=== PATIENT | female | born 1955 ===

== ENCOUNTER 2020-05-12 06:06 | Inpatient (IN) | payer MEDICARE, OTHER ==
[2020-05-12 13:02] LABS: Basophils # (Auto) 0.1 K/mm3 (0.0-0.1); Basophils % (Auto) 0.6 % (0.0-1.8); Hematocrit 37.7 % (30.3-42.9); Hemoglobin 12.5 gm/dl (10.1-14.3); Lymphocytes # (Auto) 2.2 K/mm3 (1.2-5.4); Lymphocytes % (Auto) 17.9 % (13.4-35.0); Mean Corpuscular HGB Conc 33 % (30-34); Mean Corpuscular Volume 93 fl (79-97); Monocytes % (Auto) 8.4 % (0.0-7.3); Platelet Count 316 K/mm3 (140-440); Red Blood Count 4.07 M/mm3 (3.65-5.03); Red Cell Distribution Width 14.8 % (13.2-15.2)
[2020-05-12 13:22] LABS: Alanine Aminotransferase 63 units/L (7-56); Albumin 4.3 g/dL (3.9-5); Blood Urea Nitrogen 7 mg/dL (7-17); Calcium 8.8 mg/dL (8.4-10.2); Hemolysis Index 19; LDL Cholesterol,Direct 53 mg/dL (50-130)
[2020-05-12 13:24] LABS: BUN/Creatinine Ratio 14
[2020-05-12 13:40] LABS: HDL Cholesterol 173 mg/dL (40-59)
[2020-05-12] MEDS ORDERED: LORazepam 0.5 MG TAB PO PRN (21:03)
--- NOTE | 2020-05-12 21:12 | Consultation ---
History of Present Illness - Reason for Consult Consult date: 05/12/20 Medical Management Requesting physician: SHARON FRIEDMAN - History of Present Illness 64 YO Female with Vascular Dementia with Behavioral Disturbance, Cerebral Atherosclerosis admitted to [facility] for Psychiatric stabilization. Consult placed by Dr. Friedman for medical management. Patient seen and evaluated in the recreation room. Patient resting comfortably. Patient denies fever, chills, chest pain, palpitation, productive cough, skin rash, recent ill contacts, or known exposure to COVID-19. Past History Past Medical History: other (See HPI) Past Surgical History: No surgical history, Other (Reviewed) Social history: . denies: smoking, alcohol abuse Family history: hypertension Medications and Allergies Allergies Allergy/AdvReac Type Severity Reaction Status Date / Time codeine Allergy Shortness Verified 05/12/20 10:47 of Breath Home Medications Medication Instructions Recorded Confirmed Last Taken Type Buspirone HCl [busPIRone] 15 mg PO BID 05/12/20 05/12/20 Unknown History Butalb/Acetaminophen/Caffeine 1 each PO BID PRN 05/12/20 05/12/20 Unknown Hist ory [Ekfjir-Zynbqqfb-Cyid 50-325-40] Carbidopa/Levodopa 25-100 [Sinemet] 1 each PO TID 05/12/20 05/12/20 Unknown History Ezetimibe [Zetia] 10 mg PO DAILY 05/12/20 05/12/20 Unknown History Gabapentin 800 mg PO TID 05/12/20 05/12/20 Unknown History Gabapentin [Neurontin] 800 mg PO TID 05/12/20 05/12/20 Unknown History LORazepam [Lorazepam] 0.5 mg PO DAILY PRN 05/12/20 05/12/20 Unknown History Topiramate [Topamax] 25 mg PO BID 05/12/20 05/12/20 Unknown History Venlafaxine HCl [Venlafaxine HCl 150 mg PO DAILY 05/12/20 05/12/20 Unknown History ER] amLODIPine 10 mg PO DAILY 05/12/20 05/12/20 Unknown History donepeziL [Aricept] 10 mg PO HS 05/12/20 05/12/20 Unknown History traZODone [Desyrel] 100 mg PO HS MDD 300mg 05/12/20 05/12/20 Unknown History Active Meds: Active Medications Amlodipine Besylate (Amlodipine 10 Mg Tab) 10 mg PO DAILY [facility] Carbidopa/Levodopa (Carbidopa/Levodopa 25-100 Mg Tab) 1 each PO TID [facility] Donepezil HCl (Donepezil 10 Mg Tab) 10 mg PO HS [facility] Ezetimibe (Ezetimibe 10 Mg Tab) 10 mg PO DAILY [facility] Lorazepam (Lorazepam 0.5 Mg Tab) 0.5 mg PO DAILY PRN PRN Reason: Agitation Miscellaneous Medication (Buspirone Hcl [Buspirone]) 15 mg PO BID [facility] Miscellaneous Medication (Butalb/Acetaminophen/Caffeine [Tqqlvg-Utlrkzso-Gxka 50-325-40]) 1 each PO BID PRN PRN Reason: Headache Miscellaneous Medication (Gabapentin) 800 mg PO TID [facility] Miscellaneous Medication (Gabapentin [Neurontin]) 800 mg PO TID [facility] Miscellaneous Medication (Venlafaxine Hcl [Venlafaxine Er]) 150 mg PO DAILY [facility] Topiramate (Topiramate Tab 25 Mg Tab) 25 mg PO BID [facility] Trazodone HCl (Trazodone 100 Mg Tab) 100 mg PO HS [facility] Review of Systems Constitutional: no weight loss, no weight gain, no fever Breasts: no change in shape, no swelling, no mass Cardiovascular: no chest pain, no orthopnea, no rapid/irregular heart beat, no edema, no syncope Respiratory: no cough, no shortness of breath Gastrointestinal: no abdominal pain, no vomiting Genitourinary Female: no pelvic pain, no flank pain, no dysuria, no urinary frequency, no urgency Rectal: no pain, no incontinence, no bleeding Musculoskeletal: no neck stiffness, no neck pain Integumentary: no pruritis, no redness, no sores Neurological: no transient paralysis, no weakness, no parathesias, no tingling Psychiatric: anxiety, suicidal ideation, depression, hopelessness, mood swings, no hallucinations Endocrine: no cold intolerance, no polyphagia, no polyuria, no excessive sweating Hematologic/Lymphatic: no easy bruising Allergic/Immunologic: no urticaria, no allergic rhinitis, no wheezing Exam - Constitutional General appearance: Present: no acute distress, obese - EENT Eyes: Present: PERRL ENT: hearing intact, clear oral mucosa - Neck Neck: Present: supple, normal ROM - Respiratory Respiratory effort: normal Respiratory: bilateral: CTA - Cardiovascular Heart Sounds: Present: S1 & S2. Absent: rub, click - Extremities Extremities: pulses symmetrical, No edema Peripheral Pulses: within normal limits - Abdominal General gastrointestinal: Present: soft, non-tender, non-distended, normal bowel sounds Female genitourinary: Present: normal - Integumentary Integumentary: Present: clear, warm, dry - Musculoskeletal Musculoskeletal: gait normal, strength equal bilaterally - Psychiatric Psychiatric: appropriate mood/affect, intact judgment & insight - Neurologic Neurologic: CNII-XII intact, moves all extremities Results - Labs CBC & Chem 7: 05/12/20 12:37 05/12/20 12:37 Labs: Abnormal lab results 05/12/20 05/12/20 05/12/20 Range/Units 12:37 12:37 19:13 WBC 12.2 H (4.5-11.0) K/mm3 [place] % (Auto) 8.4 H (0.0-7.3) % [place] # (Auto) 1.0 H (0.0-0.8) K/mm3 Seg Neutrophils % 73.1 H (40.0-70.0) % Seg Neutrophils # 8.9 H (1.8-7.7) K/mm3 Potassium 3.2 L (3.6-5.0) mmol/L Creatinine 0.5 L (0.6-1.2) mg/dL Glucose 121 H (65-100) mg/dL POC Glucose 115 H (70-105) mg/dL AST 86 H (5-40) units/L ALT 63 H (7-56) units/L Alkaline Phosphatase 223 H (35-129) units/L Cholesterol 225 H (50-199) mg/dL HDL Cholesterol 173 H (40-59) mg/dL Assessment and Plan - Patient Problems (1) Vascular dementia with behavioral disturbance Current Visit: Yes Status: Acute Plan to address problem: Verbal prompting, verbal redirection, benzodiazepine therapy as clinically indicated. (2) Cerebral atherosclerosis Current Visit: Yes Status: Acute Plan to address problem: Risk factor reduction, supportive care. (3) Obesity (BMI 30.0-34.9) Current Visit: Yes Status: Acute Plan to address problem: Balanced diet, increase physical activity discharge, supportive care.
[2020-05-12] MEDS: busPIRone 5 MG TAB PO SCH (21:48)
[2020-05-12] MEDS: DONEPEZIL 10 MG TAB PO SCH (21:49)
[2020-05-12] MEDS: traZODone 100 MG TAB PO SCH (21:50)
[2020-05-12] MEDS ORDERED: NON-FORMULARY EACH (Buspirone Hcl [Buspirone] 15 MG Tablet) PO SCH (22:00)
[2020-05-12] MEDS: TOPIRAMATE TAB 25 MG TAB PO SCH (22:23)
[2020-05-13] MEDS ORDERED: traMADol 50 MG TAB PO ONE (00:57)
[2020-05-13] MEDS ORDERED: LOPERAMIDE 2 MG CAP PO ONE (00:58)
[2020-05-13] MEDS ORDERED: GABAPENTIN 800 MG PO SCH (08:00)
[2020-05-13] MEDS ORDERED: NON-FORMULARY EACH (Gabapentin [Neurontin] 800 MG Tablet) PO SCH (08:00)
--- NOTE | 2020-05-13 09:11 | History and Physical Report ---
GP History & Physical - History of Present Illness Date of admission: 05/12/20 Date of Examination: 05/13/20 Reason for Admission: Danger to self, Severe anxiety/depression, Unable to care for self History of Present Illness: Lili Mena is a 64y/o female patient who was brought in for attempting to jump in front of a moving car, according to admission note. During my interview with the patient this morning, she is sitting on side of the bed. She appears anxious. Her affect is tense. She verbalized feeling hot. She verbalized feeing "severely depressed and fearful." She says "I also feel panicked. I suffer from it." When asked what was she fearful of and if she was fearful of self harm, the patient replied "I just don't know." She denies SI/HI, stating "I've never been that." When asking the patient about jumping in front of a moving car, she states "no, that's not true. I just have severe panic attacks." The patient denies hallucinations of any kind. She says she has a history of "anxiety and depression." The patient denies ever being diagnosed with schizophrenia. She also denies any illicit drug use or nicotine. She says she drinks about 4 to 6 beers a day. She says her last drink was about two days ago. The patient denies any withdrawal symptoms at present, but states she does have them if she doesn't drink. PAST PSYCHIATRIC HISTORY Diagnoses: Depression, anxiety, panic disorder Suicide attempts or Self-harm behavior: Denies Prior psychiatric hospitalizations: Yes Substance Abuse history: Denies Previous psychiatric medications tried: Outpatient treatment: Yes PAST MEDICAL HISTORY: None reported Family Psychiatric History: None reported or documented SOCIAL HISTORY Marital Status: Living Arrangements: with family Employment Status: Retured Access to guns/weapons: None reported Education: [employer] History of Abuse: None reported Legal History: denies REVIEW OF SYSTEMS Constitutional: Negative for weight loss ENT: Negative for stridor Respiratory: Negative for cough or hemoptysis All other systems reviewed and are negative MENTAL STATUS EXAMINATION General Appearance and Behavior: Age appropriate, good hygiene, wearing appropriate clothes, good eye contact Cooperation: Participating/engaged Psychomotor Behavior: Psychomotor normal Mood: "severely depressed" Affect and affective range: congruent with stated mood, tense Thought Process: Goal directed Thought Content: none Speech: Normal rate, volume and rhythm Suicidal Ideation: Denies at present Homicidal Ideation: Denies Hallucinations: Denies Delusions: None elicited Impulse Control: Impaired Insight and Judgment: Limited insight and judgment Memory: Limited Attention: impaired Orientation: Alert, oriented Assessment and Plan (1) Schizophrenia (2) Alcohol Use Disorder (3) Major Depressive Disorder (4) Panic Disorder Treatment Plan Patient admitted for inpatient psychiatric evaluation, medication adjustment and close monitoring The patient's behavior, mood, sleep and appetite will be closely monitored. Patient enrolled in individual and group therapeutic sessions and encouraged to attend. Patient provided with a safe and structured environment. Patient's physical health needs will be addressed by the Hospitalist. Hospitalist Consulted Labs including CBC, CMP, Lipid profile and Hemoglobin A1C levels ordered for baseline reference Social Assessment will be completed and the Gaming Department Head will work with patient and family to ensure a suitable and safe disposition Medication adjustment will be made as clinically indicated Initiate CIWA Start Trazodone 50mg po qhs Start melatonin 5mg po qhs prn insomnia Start Depakote DR 125mg po BID Start Vistaril 25mg po BID Restarted home medications Usual Wellness Sikhism/Preservation: - Start Trazodone 50 mg po QHS & 50 mg po QHS PRN between 10 PM & 2 AM for insomnia - Start Melatonin 5 mg po QHS to promote circadian rhythm - Start Newman-3 for brain health, reduce impulsivity, and as adjunctive treatment for mood disorder, continue upon discharge given overall benefits. - Start B1 prophylaxis with 200 mg po for 5 days The patient agreed on the treatment plan, understood the risk, benefit, alternative treatment, potential consequence of no treatment, and gave informed consent. Initial Certification I certify that the inpatient psychiatric services are required for treatment that could reasonably be expected to improve the patient's condition for depression and suicidal thoughts Estimated days: 7 Post hospital care: Outpatient Case staffed with Dr. Felix. Legal Status: Voluntary Reaction to Hospitalization: Accepting Medications and Allergies Allergies Allergy/AdvReac Type Severity Reaction Status Date / Time codeine Allergy Shortness Verified 05/12/20 10:47 of Breath Home Medications Medication Instructions Recorded Confirmed Last Taken Type Buspirone HCl [busPIRone] 15 mg PO BID 05/12/20 05/12/20 Unknown History Butalb/Acetaminophen/Caffeine 1 each PO BID PRN 05/12/20 05/12/20 Unknown History [Vuvfec-Gjnriopj-Fcqr 50-325-40] Carbidopa/Levodopa 25-100 [Sinemet] 1 each PO TID 05/12/20 05/12/20 Unknown History Ezetimibe [Zetia] 10 mg PO DAILY 05/12/20 05/12/20 Unknown History Gabapentin 800 mg PO TID 05/12/20 05/12/20 Unknown History Gabapentin [Neurontin] 800 mg PO TID 05/12/20 05/12/20 Unknown History LORazepam [Lorazepam] 0.5 mg PO DAILY PRN 05/12/20 05/12/20 Unknown History Topiramate [Topamax] 25 mg PO BID 05/12/20 05/12/20 Unknown History Venlafaxine HCl [Venlafaxine HCl 150 mg PO DAILY 05/12/20 05/12/20 Unknown History ER] amLODIPine 10 mg PO DAILY 05/12/20 05/12/20 Unknown History donepeziL [Aricept] 10 mg PO HS 05/12/20 05/12/20 Unknown History traZODone [Desyrel] 100 mg PO HS MDD 300mg 05/12/20 05/12/20 Unknown History Active Meds: Active Medications Acetaminophen/Butalbital/Caffeine (Butalb/Acetaminophen/Caffeine Tab) 1 tab PO BID PRN PRN Reason: Headache Amlodipine Besylate (Amlodipine 10 Mg Tab) 10 mg PO DAILY [facility] Buspirone HCl (Buspirone 5 Mg Tab) 15 mg PO BID [facility] Last Admin: 05/12/20 21:48 Dose: 15 mg Documented by: Carbidopa/Levodopa (Carbidopa/Levodopa 25-100 Mg Tab) 1 each PO TID [facility] Donepezil HCl (Donepezil 10 Mg Tab) 10 mg PO HS [facility] Last Admin: 05/12/20 21:49 Dose: 10 mg Documented by: Ezetimibe (Ezetimibe 10 Mg Tab) 10 mg PO DAILY [facility] Gabapentin (Gabapentin 400 Mg Cap) 800 mg PO TID [facility] Lorazepam (Lorazepam 0.5 Mg Tab) 0.5 mg PO DAILY PRN PRN Reason: Agitation Topiramate (Topiramate Tab 25 Mg Tab) 25 mg PO BID [facility] Last Admin: 05/12/20 22:23 Dose: 25 mg Documented by: Trazodone HCl (Trazodone 100 Mg Tab) 100 mg PO HS [facility] Last Admin: 05/12/20 21:50 Dose: 100 mg Documented by: Venlafaxine HCl (Venlafaxine Xr 75 Mg Cap) 150 mg PO DAILY [facility] Results - Results Labs/Vitals: Laboratory Last Values WBC 12.2 K/mm3 (4.5-11.0) H 05/12/20 12:37 RBC 4.07 M/mm3 (3.65-5.03) 05/12/20 12:37 Hgb 12.5 gm/dl (10.1-14.3) 05/12/20 12:37 Hct 37.7 % (30.3-42.9) 05/12/20 12:37 MCV 93 fl (79-97) 05/12/20 12:37 MCH 31 pg (28-32) 05/12/20 12:37 MCHC 33 % (30-34) 05/12/20 12:37 RDW 14.8 % (13.2-15.2) 05/12/20 12:37 Plt Count 316 K/mm3 (140-440) 05/12/20 12:37 Lymph % (Auto) 17.9 % (13.4-35.0) 05/12/20 12:37 [place] % (Auto) 8.4 % (0.0-7.3) H 05/12/20 12:37 Eos % (Auto) 0.0 % (0.0-4.3) 05/12/20 12:37 Baso % (Auto) 0.6 % (0.0-1.8) 05/12/20 12:37 Lymph # (Auto) 2.2 K/mm3 (1.2-5.4) 05/12/20 12:37 [place] # (Auto) 1.0 K/mm3 (0.0-0.8) H 05/12/20 12:37 Eos # (Auto) 0.0 K/mm3 (0.0-0.4) 05/12/20 12:37 Baso # (Auto) 0.1 K/mm3 (0.0-0.1) 05/12/20 12:37 Seg Neutrophils % 73.1 % (40.0-70.0) H 05/12/20 12:37 Seg Neutrophils # 8.9 K/mm3 (1.8-7.7) H 05/12/20 12:37 Sodium 138 mmol/L (137-145) 05/12/20 12:37 Potassium 3.2 mmol/L (3.6-5.0) L 05/12/20 12:37 Chloride 101.0 mmol/L (98-107) 05/12/20 12:37 Carbon Dioxide 25 mmol/L (22-30) 05/12/20 12:37 Anion Gap 15 mmol/L 05/12/20 12:37 BUN 7 mg/dL (7-17) 05/12/20 12:37 Creatinine 0.5 mg/dL (0.6-1.2) L 05/12/20 12:37 Estimated GFR > 60 ml/min 05/12/20 12:37 BUN/Creatinine Ratio 14 % 05/12/20 12:37 Glucose 121 mg/dL (65-100) H 05/12/20 12:37 POC Glucose 117 mg/dL (70-105) H 05/13/20 07:57 Hemoglobin A1c 5.2 % (4-6) 05/12/20 12:37 Calcium 8.8 mg/dL (8.4-10.2) 05/12/20 12:37 Total Bilirubin 0.70 mg/dL (0.1-1.2) 05/12/20 12:37 AST 86 units/L (5-40) H 05/12/20 12:37 ALT 63 units/L (7-56) H 05/12/20 12:37 Alkaline Phosphatase 223 units/L (35-129) H 05/12/20 12:37 Total Protein 7.4 g/dL (6.3-8.2) 05/12/20 12:37 Albumin 4.3 g/dL (3.9-5) 05/12/20 12:37 Albumin/Globulin Ratio 1.4 % 05/12/20 12:37 Triglycerides 114 mg/dL (2-149) 05/12/20 12:37 Cholesterol 225 mg/dL (50-199) H 05/12/20 12:37 LDL Cholesterol Direct 53 mg/dL (50-130) 05/12/20 12:37 HDL Cholesterol 173 mg/dL (40-59) H 05/12/20 12:37 Cholesterol/HDL Ratio 1.30 % 05/12/20 12:37 TSH 2.290 mlU/mL (0.270-4.200) 05/12/20 12:37 Last Vital Signs Temp 99.2 F 05/13/20 07:10 Pulse 85 05/12/20 22:00 Resp 17 05/12/20 22:00 BP 172/88 05/12/20 22:00 Pulse Ox 96 05/12/20 22:00 Physical Examination - Constitutional Vitals: Vital Signs Temp Pulse Resp BP Pulse Ox 99.2 F 85 17 172/88 96 05/13/20 07:10 05/12/20 22:00 05/12/20 22:00 05/12/20 22:00 05/12/20 22:00 Temperature -Last 24 Hours Temperature 99.2 F Temperature 98.6 F Temperature 98.6 F Mental Status Exam - Vital signs Last Vital Signs Temp 99.2 F 05/13/20 07:10 Pulse 85 05/12/20 22:00 Resp 17 05/12/20 22:00 BP 172/88 05/12/20 22:00 Pulse Ox 96 05/12/20 22:00 Physician Certification - Certification Statement Physician Certification Statement: This is an acknowledgement statement that LILI MENA is a 64 year old F who requires inpatient psychiatric admission for treatment which could reasonably be expected to improve the patient's condition for Estimated period of time patient will need to remain in the hospital: [ ] Plan for post-hospital care: [ ]
[2020-05-13] MEDS ORDERED: chlordiazePOXIDE 25 MG CAP PO PRN ×2 (09:21)
[2020-05-13] MEDS: CARBIDOPA/LEVODOPA 25-100 MG TAB PO SCH ×3 (09:58→20:29)
[2020-05-13] MEDS: busPIRone 5 MG TAB PO SCH ×2 (09:58→21:00)
[2020-05-13] MEDS: GABAPENTIN 400 MG CAP PO SCH ×3 (09:58→20:29)
[2020-05-13] MEDS: amLODIPine 10 MG TAB PO SCH (09:58)
[2020-05-13] MEDS: TOPIRAMATE TAB 25 MG TAB PO SCH ×2 (09:59→21:01)
[2020-05-13] MEDS: EZETIMIBE 10 MG TAB PO SCH (09:59)
[2020-05-13] MEDS: VENLAFAXINE XR 75 MG CAP PO SCH (09:59)
[2020-05-13] MEDS ORDERED: VENLAFAXINE HCL 225 MG PO SCH (10:00)
[2020-05-13] MEDS: hydrOXYzine PAMOATE 25 MG CAP PO SCH ×2 (10:04→21:01)
[2020-05-13] MEDS: DIVALPROEX DR 125 MG TAB PO SCH ×2 (10:04→21:00)
--- NOTE | 2020-05-13 11:57 | Event Note ---
Date: 05/13/20 Spoke with Randy Howell concerning this patient; as it was relayed to me to call by SW. Mrs. Howell states that the Title Specialist has spoken with "[facility] and they have sent email over to her for the patient concerning the patient's evaluation."
[2020-05-13] MEDS: DONEPEZIL 10 MG TAB PO SCH (21:01)
[2020-05-13] MEDS: traZODone 100 MG TAB PO SCH (21:01)
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
[2020-05-14] MEDS: GABAPENTIN 400 MG CAP PO SCH ×3 (08:50→21:45)
[2020-05-14] MEDS: CARBIDOPA/LEVODOPA 25-100 MG TAB PO SCH ×3 (08:52→21:45)
[2020-05-14] MEDS: busPIRone 5 MG TAB PO SCH ×2 (09:51→21:45)
[2020-05-14] MEDS: VENLAFAXINE XR 75 MG CAP PO SCH (09:51)
[2020-05-14] MEDS: DIVALPROEX DR 125 MG TAB PO SCH ×2 (09:52→21:44)
[2020-05-14] MEDS: amLODIPine 10 MG TAB PO SCH (09:52)
[2020-05-14] MEDS: EZETIMIBE 10 MG TAB PO SCH (09:52)
[2020-05-14] MEDS: TOPIRAMATE TAB 25 MG TAB PO SCH ×2 (09:53→21:46)
[2020-05-14] MEDS: hydrOXYzine PAMOATE 25 MG CAP PO SCH ×2 (09:53→21:45)
[2020-05-14] MEDS: traZODone 100 MG TAB PO SCH (21:45)
[2020-05-14] MEDS: DONEPEZIL 10 MG TAB PO SCH (21:46)
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
[2020-05-15] MEDS: GABAPENTIN 400 MG CAP PO SCH ×3 (11:52→20:49)
[2020-05-15] MEDS: TOPIRAMATE TAB 25 MG TAB PO SCH ×2 (11:52→21:50)
[2020-05-15] MEDS: CARBIDOPA/LEVODOPA 25-100 MG TAB PO SCH ×3 (11:52→20:50)
[2020-05-15] MEDS: busPIRone 5 MG TAB PO SCH ×2 (11:52→21:50)
[2020-05-15] MEDS: EZETIMIBE 10 MG TAB PO SCH (11:54)
[2020-05-15] MEDS: DIVALPROEX DR 125 MG TAB PO SCH ×2 (11:54→21:50)
[2020-05-15] MEDS: amLODIPine 10 MG TAB PO SCH (11:54)
[2020-05-15] MEDS: hydrOXYzine PAMOATE 25 MG CAP PO SCH ×2 (11:54→21:50)
[2020-05-15] MEDS: BUTALB/ACETAMINOPHEN/CAFFEINE TAB PO PRN (11:55)
[2020-05-15] MEDS: VENLAFAXINE XR 75 MG CAP PO SCH (15:36)
[2020-05-15] MEDS ORDERED: ACETAMINOPHEN 325 MG TAB PO PRN (19:23)
[2020-05-15] MEDS: traZODone 100 MG TAB PO SCH (21:50)
[2020-05-15] MEDS: DONEPEZIL 10 MG TAB PO SCH (21:50)
[2020-05-16] MEDS: CARBIDOPA/LEVODOPA 25-100 MG TAB PO SCH ×3 (08:31→21:42)
[2020-05-16] MEDS: GABAPENTIN 400 MG CAP PO SCH ×3 (08:32→21:42)
--- NOTE | 2020-05-16 09:20 | Progress Note ---
Subjective Date of service: 05/16/20 Principal diagnosis: Schizophrenia Subjective Comment: Psych Nurse:pt spent the evening in activity room interacting appropriately with staff, alert and orientedx3, anxious but cooperative, ativan 0.5mg po given prn for anxiety as requested by pt; pt is medication compliant, good appetite, denies si//hi, a/v/h, no distress noted, will continue to monitor for safety. Psych Progress Ms. Pearson is seen this a.m., patient reports doing good, enjoying activities, eating and drinking okay without any difficulty also reports sleeping well no nightmares. Patient reported compliance with her medications, denies having any known side effects at this time. Patient also asked about when she will be potentially discharging from patient were looking at Monday or Monday a.m. patient reports she is in agreement with that. Reason for continued inpatient treatment: No recent behavioral disturbances, pt reported to be better and more pleasant, will continue current meds and observe for mood stability. REVIEW OF SYSTEMS Constitutional: Negative for weight loss ENT: Negative for stridor Respiratory: Negative for cough or hemoptysis All other systems reviewed and are negative MENTAL STATUS EXAMINATION General Appearance and Behavior: Age appropriate, good hygiene, wearing appropriate clothes, good eye contact Cooperation: Participating/engaged Psychomotor Behavior: Psychomotor normal Mood: "uch better" Affect and affective range: congruent with stated mood Thought Process: logical Thought Content: within reality Speech: Normal rate, volume and rhythm Suicidal Ideation: Denies Homicidal Ideation: Denies Hallucinations: Denies Delusions: None elicited Impulse Control: Impaired Insight and Judgment: Good insight and judgment Memory: Limited Attention: unimpaired Orientation: Alert, oriented Assessment and Plan (1) Schizophrenia (2) Alcohol Use Disorder (3) Major Depressive Disorder (4) Panic Disorder Treatment Plan Patient admitted for inpatient psychiatric evaluation, medication adjustment and close monitoring The patient's behavior, mood, sleep and appetite will be closely monitored. Patient enrolled in individual and group therapeutic sessions and encouraged to attend. Patient provided with a safe and structured environment. Patient's physical health needs will be addressed by the Hospitalist. Hospitalist Consulted Labs including CBC, CMP, Lipid profile and Hemoglobin A1C levels ordered for baseline reference Social Assessment will be completed and the Gasket Former will work with patient and family to ensure a suitable and safe disposition Medication adjustment will be made as clinically indicated No changes made today Usual Wellness Synagogue/Preservation: - Start Trazodone 50 mg po QHS & 50 mg po QHS PRN between 10 PM & 2 AM for insomnia - Start Melatonin 5 mg po QHS to promote circadian rhythm - Start [place]-3 for brain health, reduce impulsivity, and as adjunctive treatment for mood disorder, continue upon discharge given overall benefits. - Start B1 prophylaxis with 200 mg po for 5 days The patient agreed on the treatment plan, understood the risk, benefit, alternative treatment, potential consequence of no treatment, and gave informed consent. Estimated days: 5 Post hospital care: Outpatient Case staffed with Dr. Felix. Medications and Allergies Allergies Allergy/AdvReac Type Severity Reaction Status Date / Time codeine Allergy Shortness Verified 05/12/20 10:47 of Breath Home Medications Medication Instructions Recorded Confirmed Last Taken Type Buspirone HCl [busPIRone] 15 mg PO BID 05/12/20 05/12/20 Unknown History Butalb/Acetaminophen/Caffeine 1 each PO BID PRN 05/12/20 05/12/20 Unknown History [Awblyr-Qgmtkchb-Scwq 50-325-40] Carbidopa/Levodopa 25-100 [Sinemet] 1 each PO TID 05/12/20 05/12/20 Unknown History Ezetimibe [Zetia] 10 mg PO DAILY 05/12/20 05/12/20 Unknown History Gabapentin 800 mg PO TID 05/12/20 05/12/20 Unknown History Gabapentin [Neurontin] 800 mg PO TID 05/12/20 05/12/20 Unknown History LORazepam [Lorazepam] 0.5 mg PO DAILY PRN 05/12/20 05/12/20 Unknown History Topiramate [Topamax] 25 mg PO BID 05/12/20 05/12/20 Unknown History Venlafaxine HCl [Venlafaxine HCl 150 mg PO DAILY 05/12/20 05/12/20 Unknown History ER] amLODIPine 10 mg PO DAILY 05/12/20 05/12/20 Unknown History donepeziL [Aricept] 10 mg PO HS 05/12/20 05/12/20 Unknown History traZODone [Desyrel] 100 mg PO HS MDD 300mg 05/12/20 05/12/20 Unknown History Active Meds: Active Medications Acetaminophen (Acetaminophen 325 Mg Tab) 650 mg PO Q6H PRN PRN Reason: Pain, Mild (1-3) Acetaminophen/Butalbital/Caffeine (Butalb/Acetaminophen/Caffeine Tab) 1 tab PO BID PRN PRN Reason: Headache Last Admin: 05/15/20 11:55 Dose: 1 tab Documented by: Amlodipine Besylate (Amlodipine 10 Mg Tab) 10 mg PO DAILY [facility] Last Admin: 05/15/20 11:54 Dose: 10 mg Documented by: Buspirone HCl (Buspirone 5 Mg Tab) 15 mg PO BID [facility] Last Admin: 05/15/20 21:50 Dose: 15 mg Documented by: Carbidopa/Levodopa (Carbidopa/Levodopa 25-100 Mg Tab) 1 each PO TID [facility] Last Admin: 05/16/20 08:31 Dose: 1 each Documented by: Chlordiazepoxide HCl (Chlordiazepoxide 25 Mg Cap) 50 mg PO Q1HR PRN PRN Reason: YOU-Ernie 8-15 Chlordiazepoxide HCl (Chlordiazepoxide 25 Mg Cap) 100 mg PO Q1HR PRN PRN Reason: YOU-Ernie 16-25 Divalproex Sodium (Divalproex Dr 125 Mg Tab) 125 mg PO BID [facility] Last Admin: 05/15/20 21:50 Dose: 125 mg Documented by: Donepezil HCl (Donepezil 10 Mg Tab) 10 mg PO [facility] Last Admin: 05/15/20 21:50 Dose: 10 mg Documented by: Ezetimibe (Ezetimibe 10 Mg Tab) 10 mg PO DAILY [facility] Last Admin: 05/15/20 11:54 Dose: 10 mg Documented by: Gabapentin (Gabapentin 400 Mg Cap) 800 mg PO TID [facility] Last Admin: 05/16/20 08:32 Dose: 800 mg Documented by: Hydroxyzine Pamoate (Hydroxyzine Pamoate 25 Mg Cap) 25 mg PO BID [facility] Last Admin: 05/15/20 21:50 Dose: 25 mg Documented by: Lorazepam (Lorazepam 0.5 Mg Tab) 0.5 mg PO DAILY PRN PRN Reason: Agitation Last Admin: 05/15/20 21:41 Dose: 0.5 mg Documented by: Topiramate (Topiramate Tab 25 Mg Tab) 25 mg PO BID [facility] Last Admin: 05/15/20 21:50 Dose: 25 mg Documented by: Trazodone HCl (Trazodone 100 Mg Tab) 100 mg PO HS [facility] Last Admin: 05/15/20 21:50 Dose: 100 mg Documented by: Venlafaxine HCl (Venlafaxine Xr 75 Mg Cap) 150 mg PO DAILY [facility] Last Admin: 05/15/20 15:36 Dose: 150 mg Documented by: Results - Results Labs/Vitals: Laboratory Last Values WBC 12.2 K/mm3 (4.5-11.0) H 05/12/20 12:37 RBC 4.07 M/mm3 (3.65-5.03) 05/12/20 12:37 Hgb 12.5 gm/dl (10.1-14.3) 05/12/20 12:37 Hct 37.7 % (30.3-42.9) 05/12/20 12:37 MCV 93 fl (79-97) 05/12/20 12:37 MCH 31 pg (28-32) 05/12/20 12:37 MCHC 33 % (30-34) 05/12/20 12:37 RDW 14.8 % (13.2-15.2) 05/12/20 12:37 Plt Count 316 K/mm3 (140-440) 05/12/20 12:37 Lymph % (Auto) 17.9 % (13.4-35.0) 05/12/20 12:37 [place] % (Auto) 8.4 % (0.0-7.3) H 05/12/20 12:37 Eos % (Auto) 0.0 % (0.0-4.3) 05/12/20 12:37 Baso % (Auto) 0.6 % (0.0-1.8) 05/12/20 12:37 Lymph # (Auto) 2.2 K/mm3 (1.2-5.4) 05/12/20 12:37 [place] # (Auto) 1.0 K/mm3 (0.0-0.8) H 05/12/20 12:37 Eos # (Auto) 0.0 K/mm3 (0.0-0.4) 05/12/20 12:37 Baso # (Auto) 0.1 K/mm3 (0.0-0.1) 05/12/20 12:37 Seg Neutrophils % 73.1 % (40.0-70.0) H 05/12/20 12:37 Seg Neutrophils # 8.9 K/mm3 (1.8-7.7) H 05/12/20 12:37 Sodium 138 mmol/L (137-145) 05/12/20 12:37 Potassium 3.2 mmol/L (3.6-5.0) L 05/12/20 12:37 Chloride 101.0 mmol/L (98-107) 05/12/20 12:37 Carbon Dioxide 25 mmol/L (22-30) 05/12/20 12:37 Anion Gap 15 mmol/L 05/12/20 12:37 BUN 7 mg/dL (7-17) 05/12/20 12:37 Creatinine 0.5 mg/dL (0.6-1.2) L 05/12/20 12:37 Estimated GFR > 60 ml/min 05/12/20 12:37 BUN/Creatinine Ratio 14 % 05/12/20 12:37 Glucose 121 mg/dL (65-100) H 05/12/20 12:37 POC Glucose 110 mg/dL (70-105) H 05/15/20 06:30 Hemoglobin A1c 5.2 % (4-6) 05/12/20 12:37 Calcium 8.8 mg/dL (8.4-10.2) 05/12/20 12:37 Total Bilirubin 0.70 mg/dL (0.1-1.2) 05/12/20 12:37 AST 86 units/L (5-40) H 05/12/20 12:37 ALT 63 units/L (7-56) H 05/12/20 12:37 Alkaline Phosphatase 223 units/L (35-129) H 05/12/20 12:37 Total Protein 7.4 g/dL (6.3-8.2) 05/12/20 12:37 Albumin 4.3 g/dL (3.9-5) 05/12/20 12:37 Albumin/Globulin Ratio 1.4 % 05/12/20 12:37 Triglycerides 114 mg/dL (2-149) 05/12/20 12:37 Cholesterol 225 mg/dL (50-199) H 05/12/20 12:37 LDL Cholesterol Direct 53 mg/dL (50-130) 05/12/20 12:37 HDL Cholesterol 173 mg/dL (40-59) H 05/12/20 12:37 Cholesterol/HDL Ratio 1.30 % 05/12/20 12:37 TSH 2.290 mlU/mL (0.270-4.200) 05/12/20 12:37 Coronavirus (PCR) Negative (Negative) 05/13/20 08:06 Last Vital Signs Temp 99.6 F 05/16/20 07:05 Pulse 79 05/16/20 07:05 Resp 15 05/16/20 07:05 BP 150/88 05/16/20 07:05 Pulse Ox 93 05/16/20 07:05
[2020-05-16] MEDS: EZETIMIBE 10 MG TAB PO SCH (09:50)
[2020-05-16] MEDS: TOPIRAMATE TAB 25 MG TAB PO SCH ×2 (09:51→21:42)
[2020-05-16] MEDS: amLODIPine 10 MG TAB PO SCH (09:51)
[2020-05-16] MEDS: busPIRone 5 MG TAB PO SCH ×2 (09:51→21:41)
[2020-05-16] MEDS: hydrOXYzine PAMOATE 25 MG CAP PO SCH ×2 (09:52→21:42)
[2020-05-16] MEDS: DIVALPROEX DR 125 MG TAB PO SCH ×2 (09:52→21:42)
[2020-05-16] MEDS: VENLAFAXINE XR 75 MG CAP PO SCH (09:52)
[2020-05-16] MEDS: DONEPEZIL 10 MG TAB PO SCH (21:42)
[2020-05-16] MEDS: traZODone 100 MG TAB PO SCH (21:43)
[2020-05-17] MEDS: GABAPENTIN 400 MG CAP PO SCH ×3 (08:16→19:39)
[2020-05-17] MEDS: CARBIDOPA/LEVODOPA 25-100 MG TAB PO SCH ×3 (08:16→19:39)
--- NOTE | 2020-05-17 09:23 | Progress Note ---
Subjective Date of service: 05/17/20 Principal diagnosis: Schizophrenia Subjective Comment: Psych Nurse:Last evening the patient talked to three of her peers. She and her peers presented as playing a "game" with the tech. When the tech would be assisting someone - this patient and her peers would request something of the tech. When unable to get a request satisfied quickly enough the patient would complain loudly then whisper to her peers. At one point the patient came to the nurses station upset and requesting to leave AMA [facility]. Patient was given the form to fill out but she did not return it. This mortgage underwriter listened to patient with various complaints and she stated she felt better. She stated she had called her and asked him to pick her up here tomorrow. Patient was encouraged to discuss this with the care provider in the morning. Patient denies si/hi/ah/vh. She is medication compliant. Will continue to monitor patient for safety. Psych Progress Patient seen this a.m. patient reports doing much better, she reports she has not spoken to her yet, has been medication compliant, patient reports sleeping well not not hearing voices, improved mood, appetite and no nightly disturbances. Patient reports seeing the hospitalist yesterday too about her previous medical complaints. She also states she is looking forward to getting discharge. Reason for continued inpatient treatment: No recent behavioral disturbances, pt reported to be better and more pleasant, will continue current meds and observe for mood stability. REVIEW OF SYSTEMS Constitutional: Negative for weight loss ENT: Negative for stridor Respiratory: Negative for cough or hemoptysis All other systems reviewed and are negative MENTAL STATUS EXAMINATION General Appearance and Behavior: Age appropriate, good hygiene, wearing appropriate clothes, good eye contact Cooperation: Participating/engaged Psychomotor Behavior: Psychomotor normal Mood: "uch better" Affect and affective range: congruent with stated mood Thought Process: logical Thought Content: within reality Speech: Normal rate, volume and rhythm Suicidal Ideation: Denies Homicidal Ideation: Denies Hallucinations: Denies Delusions: None elicited Impulse Control: Impaired Insight and Judgment: Good insight and judgment Memory: Limited Attention: unimpaired Orientation: Alert, oriented Assessment and Plan (1) Schizophrenia (2) Alcohol Use Disorder (3) Major Depressive Disorder (4) Panic Disorder Treatment Plan Patient admitted for inpatient psychiatric evaluation, medication adjustment and close monitoring The patient's behavior, mood, sleep and appetite will be closely monitored. Patient enrolled in individual and group therapeutic sessions and encouraged to attend. Patient provided with a safe and structured environment. Patient's physical health needs will be addressed by the Hospitalist. Hospitalist Consulted Labs including CBC, CMP, Lipid profile and Hemoglobin A1C levels ordered for baseline reference Social Assessment will be completed and the Dock Grader will work with patient and family to ensure a suitable and safe disposition Medication adjustment will be made as clinically indicated Deparkote increased to 250 mg BID Usual Wellness Spiritism/Preservation: - Start Trazodone 50 mg po QHS & 50 mg po QHS PRN between 10 PM & 2 AM for insomnia - Start Melatonin 5 mg po QHS to promote circadian rhythm - Start [place]-3 for brain health, reduce impulsivity, and as adjunctive treatment for mood disorder, continue upon discharge given overall benefits. - Start B1 prophylaxis with 200 mg po for 5 days The patient agreed on the treatment plan, understood the risk, benefit, alternative treatment, potential consequence of no treatment, and gave informed consent. Estimated days: 5 Post hospital care: Outpatient Case staffed with Dr. Felix. Medications and Allergies Allergies Allergy/AdvReac Type Severity Reaction Status Date / Time codeine Allergy Shortness Verified 05/12/20 10:47 of Breath Home Medications Medication Instructions Recorded Confirmed Last Taken Type Buspirone HCl [busPIRone] 15 mg PO BID 05/12/20 05/12/20 Unknown History Butalb/Acetaminophen/Caffeine 1 each PO BID PRN 05/12/20 05/12/20 Unknown History [Iqhrkx-Aydbeilf-Jprs 50-325-40] Carbidopa/Levodopa 25-100 [Sinemet] 1 each PO TID 05/12/20 05/12/20 Unknown History Ezetimibe [Zetia] 10 mg PO DAILY 05/12/20 05/12/20 Unknown History Gabapentin 800 mg PO TID 05/12/20 05/12/20 Unknown History Gabapentin [Neurontin] 800 mg PO TID 05/12/20 05/12/20 Unknown History LORazepam [Lorazepam] 0.5 mg PO DAILY PRN 05/12/20 05/12/20 Unknown History Topiramate [Topamax] 25 mg PO BID 05/12/20 05/12/20 Unknown History Venlafaxine HCl [Venlafaxine HCl 150 mg PO DAILY 05/12/20 05/12/20 Unknown History ER] amLODIPine 10 mg PO DAILY 05/12/20 05/12/20 Unknown History donepeziL [Aricept] 10 mg PO HS 05/12/20 05/12/20 Unknown History traZODone [Desyrel] 100 mg PO HS MDD 300mg 05/12/20 05/12/20 Unknown History Active Meds: Active Medications Acetaminophen (Acetaminophen 325 Mg Tab) 650 mg PO Q6H PRN PRN Reason: Pain, Mild (1-3) Acetaminophen/Butalbital/Caffeine (Butalb/Acetaminophen/Caffeine Tab) 1 tab PO BID PRN PRN Reason: Headache Last Admin: 05/15/20 11:55 Dose: 1 tab Documented by: Amlodipine Besylate (Amlodipine 10 Mg Tab) 10 mg PO DAILY [facility] Last Admin: 05/16/20 09:51 Dose: 10 mg Documented by: Buspirone HCl (Buspirone 5 Mg Tab) 15 mg PO BID [facility] Last Admin: 05/16/20 21:41 Dose: 15 mg Documented by: Carbidopa/Levodopa (Carbidopa/Levodopa 25-100 Mg Tab) 1 each PO TID [facility] Last Admin: 05/17/20 08:16 Dose: 1 each Documented by: Chlordiazepoxide HCl (Chlordiazepoxide 25 Mg Cap) 50 mg PO Q1HR PRN PRN Reason: CIWA-Ar 8-15 Chlordiazepoxide HCl (Chlordiazepoxide 25 Mg Cap) 100 mg PO Q1HR PRN PRN Reason: CIWA-Ar 16-25 Divalproex Sodium (Divalproex Dr 125 Mg Tab) 125 mg PO BID [facility] Last Admin: 05/16/20 21:42 Dose: 125 mg Documented by: Donepezil HCl (Donepezil 10 Mg Tab) 10 mg PO HS [facility] Last Admin: 05/16/20 21:42 Dose: 10 mg Documented by: Ezetimibe (Ezetimibe 10 Mg Tab) 10 mg PO DAILY [facility] Last Admin: 05/16/20 09:50 Dose: 10 mg Documented by: Gabapentin (Gabapentin 400 Mg Cap) 800 mg PO TID [facility] Last Admin: 05/17/20 08:16 Dose: 800 mg Documented by: Hydroxyzine Pamoate (Hydroxyzine Pamoate 25 Mg Cap) 25 mg PO BID [facility] Last Admin: 05/16/20 21:42 Dose: 25 mg Documented by: Lorazepam (Lorazepam 0.5 Mg Tab) 0.5 mg PO DAILY PRN PRN Reason: Agitation Last Admin: 05/15/20 21:41 Dose: 0.5 mg Documented by: Topiramate (Topiramate Tab 25 Mg Tab) 25 mg PO BID [facility] Last Admin: 05/16/20 21:42 Dose: 25 mg Documented by: Trazodone HCl (Trazodone 100 Mg Tab) 100 mg PO HS [facility] Last Admin: 05/16/20 21:43 Dose: 100 mg Documented by: Venlafaxine HCl (Venlafaxine Xr 75 Mg Cap) 150 mg PO DAILY [facility] Last Admin: 05/16/20 09:52 Dose: 150 mg Documented by: Results - Results Labs/Vitals: Laboratory Last Values WBC 12.2 K/mm3 (4.5-11.0) H 05/12/20 12:37 RBC 4.07 M/mm3 (3.65-5.03) 05/12/20 12:37 Hgb 12.5 gm/dl (10.1-14.3) 05/12/20 12:37 Hct 37.7 % (30.3-42.9) 05/12/20 12:37 MCV 93 fl (79-97) 05/12/20 12:37 MCH 31 pg (28-32) 05/12/20 12:37 MCHC 33 % (30-34) 05/12/20 12:37 RDW 14.8 % (13.2-15.2) 05/12/20 12:37 Plt Count 316 K/mm3 (140-440) 05/12/20 12:37 Lymph % (Auto) 17.9 % (13.4-35.0) 05/12/20 12:37 [place] % (Auto) 8.4 % (0.0-7.3) H 05/12/20 12:37 Eos % (Auto) 0.0 % (0.0-4.3) 05/12/20 12:37 Baso % (Auto) 0.6 % (0.0-1.8) 05/12/20 12:37 Lymph # (Auto) 2.2 K/mm3 (1.2-5.4) 05/12/20 12:37 [place] # (Auto) 1.0 K/mm3 (0.0-0.8) H 05/12/20 12:37 Eos # (Auto) 0.0 K/mm3 (0.0-0.4) 05/12/20 12:37 Baso # (Auto) 0.1 K/mm3 (0.0-0.1) 05/12/20 12:37 Seg Neutrophils % 73.1 % (40.0-70.0) H 05/12/20 12:37 Seg Neutrophils # 8.9 K/mm3 (1.8-7.7) H 05/12/20 12:37 Sodium 138 mmol/L (137-145) 05/12/20 12:37 Potassium 3.2 mmol/L (3.6-5.0) L 05/12/20 12:37 Chloride 101.0 mmol/L (98-107) 05/12/20 12:37 Carbon Dioxide 25 mmol/L (22-30) 05/12/20 12:37 Anion Gap 15 mmol/L 05/12/20 12:37 BUN 7 mg/dL (7-17) 05/12/20 12:37 Creatinine 0.5 mg/dL (0.6-1.2) L 05/12/20 12:37 Estimated GFR > 60 ml/min 05/12/20 12:37 BUN/Creatinine Ratio 14 % 05/12/20 12:37 Glucose 121 mg/dL (65-100) H 05/12/20 12:37 POC Glucose 117 mg/dL (70-105) H 05/17/20 06:46 Hemoglobin A1c 5.2 % (4-6) 05/12/20 12:37 Calcium 8.8 mg/dL (8.4-10.2) 05/12/20 12:37 Total Bilirubin 0.70 mg/dL (0.1-1.2) 05/12/20 12:37 AST 86 units/L (5-40) H 05/12/20 12:37 ALT 63 units/L (7-56) H 05/12/20 12:37 Alkaline Phosphatase 223 units/L (35-129) H 05/12/20 12:37 Total Protein 7.4 g/dL (6.3-8.2) 05/12/20 12:37 Albumin 4.3 g/dL (3.9-5) 05/12/20 12:37 Albumin/Globulin Ratio 1.4 % 05/12/20 12:37 Triglycerides 114 mg/dL (2-149) 05/12/20 12:37 Cholesterol 225 mg/dL (50-199) H 05/12/20 12:37 LDL Cholesterol Direct 53 mg/dL (50-130) 05/12/20 12:37 HDL Cholesterol 173 mg/dL (40-59) H 05/12/20 12:37 Cholesterol/HDL Ratio 1.30 % 05/12/20 12:37 TSH 2.290 mlU/mL (0.270-4.200) 05/12/20 12:37 Coronavirus (PCR) Negative (Negative) 05/13/20 08:06 Last Vital Signs Temp 97.3 F L 05/17/20 07:07 Pulse 69 05/17/20 07:07 Resp 16 05/17/20 07:07 BP 148/80 05/17/20 07:07 Pulse Ox 94 05/17/20 07:07
[2020-05-17] MEDS ORDERED: DIVALPROEX DR 125 MG TAB PO SCH (09:25)
[2020-05-17] MEDS ORDERED: DIVALPROEX DR 250 MG TAB PO SCH (10:00)
[2020-05-17] MEDS: VENLAFAXINE XR 75 MG CAP PO SCH (10:21)
[2020-05-17] MEDS: DIVALPROEX DR 125 MG TAB PO SCH ×2 (10:21→22:25)
[2020-05-17] MEDS: amLODIPine 10 MG TAB PO SCH (10:22)
[2020-05-17] MEDS: EZETIMIBE 10 MG TAB PO SCH (10:22)
[2020-05-17] MEDS: BUTALB/ACETAMINOPHEN/CAFFEINE TAB PO PRN (10:23)
[2020-05-17] MEDS: TOPIRAMATE TAB 25 MG TAB PO SCH ×2 (10:24→22:25)
[2020-05-17] MEDS: traZODone 100 MG TAB PO SCH (22:24)
[2020-05-17] MEDS: DONEPEZIL 10 MG TAB PO SCH (22:25)
--- NOTE | 2020-05-18 07:30 | Progress Note ---
Subjective Date of service: 05/18/20 Principal diagnosis: Schizophrenia Subjective Comment: Psych Nurse:Pt received in the day room interacting appropriately with peers. Denies pain, SI or HI. No acute distress or behavioral issue observed will continue to monitor. Psych Progress Patient describes a good and stable mood, denies being depressed or excessively nervous. Patient eats and sleeps well. Patient denies panic attacks, recurrent nightmares or flashbacks. Patient denies symptoms suggestive of OCD or PTSD. Patient denies hallucinations, paranoia, thought interference and no features suggestive of hypomania or michelle. Patiently completely denies suicidal or homicidal thoughts. Reason for continued inpatient treatment: No recent behavioral disturbances, pt reported to be better and more pleasant, will continue current meds and observe for mood stability. REVIEW OF SYSTEMS Constitutional: Negative for weight loss ENT: Negative for stridor Respiratory: Negative for cough or hemoptysis All other systems reviewed and are negative MENTAL STATUS EXAMINATION General Appearance and Behavior: Age appropriate, good hygiene, wearing appropriate clothes, good eye contact Cooperation: Participating/engaged Psychomotor Behavior: Psychomotor normal Mood: "uch better" Affect and affective range: congruent with stated mood Thought Process: logical Thought Content: within reality Speech: Normal rate, volume and rhythm Suicidal Ideation: Denies Homicidal Ideation: Denies Hallucinations: Denies Delusions: None elicited Impulse Control: Impaired Insight and Judgment: Good insight and judgment Memory: Limited Attention: unimpaired Orientation: Alert, oriented Assessment and Plan (1) Schizophrenia (2) Alcohol Use Disorder (3) Major Depressive Disorder (4) Panic Disorder Treatment Plan Patient admitted for inpatient psychiatric evaluation, medication adjustment and close monitoring The patient's behavior, mood, sleep and appetite will be closely monitored. Patient enrolled in individual and group therapeutic sessions and encouraged to attend. Patient provided with a safe and structured environment. Patient's physical health needs will be addressed by the Hospitalist. Hospitalist Consulted Labs including CBC, CMP, Lipid profile and Hemoglobin A1C levels ordered for baseline reference Social Assessment will be completed and the Telemetry Monitor will work with patient and family to ensure a suitable and safe disposition Medication adjustment will be made as clinically indicated Deparkote increased to 250 mg BID Usual Wellness Taoism/Preservation: - Start Trazodone 50 mg po QHS & 50 mg po QHS PRN between 10 PM & 2 AM for insomnia - Start Melatonin 5 mg po QHS to promote circadian rhythm - Start [place]-3 for brain health, reduce impulsivity, and as adjunctive treatment for mood disorder, continue upon discharge given overall benefits. - Start B1 prophylaxis with 200 mg po for 5 days The patient agreed on the treatment plan, understood the risk, benefit, alternative treatment, potential consequence of no treatment, and gave informed consent. Estimated days: 1 Post hospital care: Outpatient Case staffed with Dr. Felix. Medications and Allergies Allergies Allergy/AdvReac Type Severity Reaction Status Date / Time codeine Allergy Shortness Verified 05/12/20 10:47 of Breath Home Medications Medication Instructions Recorded Confirmed Last Taken Type Buspirone HCl [busPIRone] 15 mg PO BID 05/12/20 05/12/20 Unknown History Butalb/Acetaminophen/Caffeine 1 each PO BID PRN 05/12/20 05/12/20 Unknown History [Dvquvw-Vkjwpimf-Fyin 50-325-40] Carbidopa/Levodopa 25-100 [Sinemet] 1 each PO TID 05/12/20 05/12/20 Unknown History Ezetimibe [Zetia] 10 mg PO DAILY 05/12/20 05/12/20 Unknown History Gabapentin 800 mg PO TID 05/12/20 05/12/20 Unknown History Gabapentin [Neurontin] 800 mg PO TID 05/12/20 05/12/20 Unknown History LORazepam [Lorazepam] 0.5 mg PO DAILY PRN 05/12/20 05/12/20 Unknown History Topiramate [Topamax] 25 mg PO BID 05/12/20 05/12/20 Unknown History Venlafaxine HCl [Venlafaxine HCl 150 mg PO DAILY 05/12/20 05/12/20 Unknown History ER] amLODIPine 10 mg PO DAILY 05/12/20 05/12/20 Unknown History donepeziL [Aricept] 10 mg PO HS 05/12/20 05/12/20 Unknown History traZODone [Desyrel] 100 mg PO HS MDD 300mg 05/12/20 05/12/20 Unknown History Active Meds: Active Medications Acetaminophen (Acetaminophen 325 Mg Tab) 650 mg PO Q6H PRN PRN Reason: Pain, Mild (1-3) Acetaminophen/Butalbital/Caffeine (Butalb/Acetaminophen/Caffeine Tab) 1 tab PO BID PRN PRN Reason: Headache Last Admin: 05/17/20 10:23 Dose: 1 tab Documented by: Amlodipine Besylate (Amlodipine 10 Mg Tab) 10 mg PO DAILY [facility] Last Admin: 05/17/20 10:22 Dose: 10 mg Documented by: Carbidopa/Levodopa (Carbidopa/Levodopa 25-100 Mg Tab) 1 each PO TID [facility] Last Admin: 05/17/20 19:39 Dose: 1 each Documented by: Chlordiazepoxide HCl (Chlordiazepoxide 25 Mg Cap) 50 mg PO Q1HR PRN PRN Reason: CIWA-Ar 8-15 Chlordiazepoxide HCl (Chlordiazepoxide 25 Mg Cap) 100 mg PO Q1HR PRN PRN Reason: CIWA-Ar 16-25 Divalproex Sodium (Divalproex Dr 125 Mg Tab) 250 mg PO BID [facility] Last Admin: 05/17/20 22:25 Dose: 250 mg Documented by: Donepezil HCl (Donepezil 10 Mg Tab) 10 mg PO HS [facility] Last Admin: 05/17/20 22:25 Dose: 10 mg Documented by: Ezetimibe (Ezetimibe 10 Mg Tab) 10 mg PO DAILY [facility] Last Admin: 05/17/20 10:22 Dose: 10 mg Documented by: Gabapentin (Gabapentin 400 Mg Cap) 800 mg PO TID [facility] Last Admin: 05/17/20 19:39 Dose: 800 mg Documented by: Lorazepam (Lorazepam 0.5 Mg Tab) 0.5 mg PO DAILY PRN PRN Reason: Agitation Last Admin: 05/15/20 21:41 Dose: 0.5 mg Documented by: Topiramate (Topiramate Tab 25 Mg Tab) 25 mg PO BID [facility] Last Admin: 05/17/20 22:25 Dose: 25 mg Documented by: Trazodone HCl (Trazodone 100 Mg Tab) 100 mg PO [facility] Last Admin: 05/17/20 22:24 Dose: 100 mg Documented by: Venlafaxine HCl (Venlafaxine Xr 75 Mg Cap) 150 mg PO DAILY [facility] Last Admin: 05/17/20 10:21 Dose: 150 mg Documented by: Results - Results Labs/Vitals: Laboratory Last Values WBC 12.2 K/mm3 (4.5-11.0) H 05/12/20 12:37 RBC 4.07 M/mm3 (3.65-5.03) 05/12/20 12:37 Hgb 12.5 gm/dl (10.1-14.3) 05/12/20 12:37 Hct 37.7 % (30.3-42.9) 05/12/20 12:37 MCV 93 fl (79-97) 05/12/20 12:37 MCH 31 pg (28-32) 05/12/20 12:37 MCHC 33 % (30-34) 05/12/20 12:37 RDW 14.8 % (13.2-15.2) 05/12/20 12:37 Plt Count 316 K/mm3 (140-440) 05/12/20 12:37 Lymph % (Auto) 17.9 % (13.4-35.0) 05/12/20 12:37 [place] % (Auto) 8.4 % (0.0-7.3) H 05/12/20 12:37 Eos % (Auto) 0.0 % (0.0-4.3) 05/12/20 12:37 Baso % (Auto) 0.6 % (0.0-1.8) 05/12/20 12:37 Lymph # (Auto) 2.2 K/mm3 (1.2-5.4) 05/12/20 12:37 [place] # (Auto) 1.0 K/mm3 (0.0-0.8) H 05/12/20 12:37 Eos # (Auto) 0.0 K/mm3 (0.0-0.4) 05/12/20 12:37 Baso # (Auto) 0.1 K/mm3 (0.0-0.1) 05/12/20 12:37 Seg Neutrophils % 73.1 % (40.0-70.0) H 05/12/20 12:37 Seg Neutrophils # 8.9 K/mm3 (1.8-7.7) H 05/12/20 12:37 Sodium 138 mmol/L (137-145) 05/12/20 12:37 Potassium 3.2 mmol/L (3.6-5.0) L 05/12/20 12:37 Chloride 101.0 mmol/L (98-107) 05/12/20 12:37 Carbon Dioxide 25 mmol/L (22-30) 05/12/20 12:37 Anion Gap 15 mmol/L 05/12/20 12:37 BUN 7 mg/dL (7-17) 05/12/20 12:37 Creatinine 0.5 mg/dL (0.6-1.2) L 05/12/20 12:37 Estimated GFR > 60 ml/min 05/12/20 12:37 BUN/Creatinine Ratio 14 % 05/12/20 12:37 Glucose 121 mg/dL (65-100) H 05/12/20 12:37 POC Glucose 117 mg/dL (70-105) H 05/17/20 06:46 Hemoglobin A1c 5.2 % (4-6) 05/12/20 12:37 Calcium 8.8 mg/dL (8.4-10.2) 05/12/20 12:37 Total Bilirubin 0.70 mg/dL (0.1-1.2) 05/12/20 12:37 AST 86 units/L (5-40) H 05/12/20 12:37 ALT 63 units/L (7-56) H 05/12/20 12:37 Alkaline Phosphatase 223 units/L (35-129) H 05/12/20 12:37 Total Protein 7.4 g/dL (6.3-8.2) 05/12/20 12:37 Albumin 4.3 g/dL (3.9-5) 05/12/20 12:37 Albumin/Globulin Ratio 1.4 % 05/12/20 12:37 Triglycerides 114 mg/dL (2-149) 05/12/20 12:37 Cholesterol 225 mg/dL (50-199) H 05/12/20 12:37 LDL Cholesterol Direct 53 mg/dL (50-130) 05/12/20 12:37 HDL Cholesterol 173 mg/dL (40-59) H 05/12/20 12:37 Cholesterol/HDL Ratio 1.30 % 05/12/20 12:37 TSH 2.290 mlU/mL (0.270-4.200) 05/12/20 12:37 Coronavirus (PCR) Negative (Negative) 05/13/20 08:06 Last Vital Signs Temp 98.5 F 05/17/20 19:27 Pulse 76 05/17/20 19:27 Resp 18 05/17/20 19:27 BP 154/92 05/17/20 19:27 Pulse Ox 97 05/17/20 19:27
[2020-05-18] MEDS: GABAPENTIN 400 MG CAP PO SCH ×3 (10:30→20:53)
[2020-05-18] MEDS: VENLAFAXINE XR 75 MG CAP PO SCH (10:30)
[2020-05-18] MEDS: DIVALPROEX DR 125 MG TAB PO SCH ×2 (10:30→21:07)
[2020-05-18] MEDS: amLODIPine 10 MG TAB PO SCH (10:31)
[2020-05-18] MEDS: EZETIMIBE 10 MG TAB PO SCH (10:41)
[2020-05-18] MEDS: CARBIDOPA/LEVODOPA 25-100 MG TAB PO SCH ×3 (10:41→20:53)
[2020-05-18] MEDS: TOPIRAMATE TAB 25 MG TAB PO SCH ×2 (10:41→21:07)
[2020-05-18] MEDS: BUTALB/ACETAMINOPHEN/CAFFEINE TAB PO PRN (10:45)
[2020-05-18] MEDS: DONEPEZIL 10 MG TAB PO SCH (21:06)
[2020-05-18] MEDS: traZODone 100 MG TAB PO SCH (21:06)
--- NOTE | 2020-05-18 21:59 | Progress Note ---
Assessment and Plan - Patient Problems (1) Vascular dementia with behavioral disturbance Current Visit: Yes Status: Acute Plan to address problem: Verbal prompting, verbal redirection, benzodiazepine therapy as clinically indicated. (2) Cerebral atherosclerosis Current Visit: Yes Status: Acute Plan to address problem: Risk factor reduction, supportive care. (3) Obesity (BMI 30.0-34.9) Current Visit: Yes Status: Acute Plan to address problem: Balanced diet, increase physical activity discharge, supportive care. History Interval history: 64 YO Female with Vascular Dementia with Behavioral Disturbance, Cerebral At herosclerosis admitted to [facility] for Psychiatric stabilization. 140 patient seen and evaluated in the recreation room. Patient resting comfortably. Patient any new complaints. Hospitalist Physical - Constitutional Vitals: Temp Pulse Resp BP Pulse Ox 98.4 F 76 18 143/87 98 05/18/20 08:54 05/18/20 10:31 05/18/20 08:54 05/18/20 10:31 05/18/20 08:54 General appearance: Present: no acute distress, obese - EENT Eyes: Present: PERRL, EOM intact ENT: hearing intact - Neck Neck: Present: supple - Respiratory Respiratory effort: normal Respiratory: bilateral: CTA - Cardiovascular Rhythm: regular Heart Sounds: Present: S1 & S2 - Extremities Extremities: no ischemia Peripheral Pulses: within normal limits - Abdominal General gastrointestinal: soft, non-tender, non-distended - Integumentary Integumentary: Present: clear, dry - Psychiatric Psychiatric: cooperative - Neurologic Neurologic: CNII-XII intact Results - Labs CBC & Chem 7: 05/12/20 12:37 05/12/20 12:37 Labs: Laboratory Last Values WBC 12.2 K/mm3 (4.5-11.0) H 05/12/20 12:37 RBC 4.07 M/mm3 (3.65-5.03) 05/12/20 12:37 Hgb 12.5 gm/dl (10.1-14.3) 05/12/20 12:37 Hct 37.7 % (30.3-42.9) 05/12/20 12:37 MCV 93 fl (79-97) 05/12/20 12:37 MCH 31 pg (28-32) 05/12/20 12:37 MCHC 33 % (30-34) 05/12/20 12:37 RDW 14.8 % (13.2-15.2) 05/12/20 12:37 Plt Count 316 K/mm3 (140-440) 05/12/20 12:37 Lymph % (Auto) 17.9 % (13.4-35.0) 05/12/20 12:37 [place] % (Auto) 8.4 % (0.0-7.3) H 05/12/20 12:37 Eos % (Auto) 0.0 % (0.0-4.3) 05/12/20 12:37 Baso % (Auto) 0.6 % (0.0-1.8) 05/12/20 12:37 Lymph # (Auto) 2.2 K/mm3 (1.2-5.4) 05/12/20 12:37 [place] # (Auto) 1.0 K/mm3 (0.0-0.8) H 05/12/20 12:37 Eos # (Auto) 0.0 K/mm3 (0.0-0.4) 05/12/20 12:37 Baso # (Auto) 0.1 K/mm3 (0.0-0.1) 05/12/20 12:37 Seg Neutrophils % 73.1 % (40.0-70.0) H 05/12/20 12:37 Seg Neutrophils # 8.9 K/mm3 (1.8-7.7) H 05/12/20 12:37 Sodium 138 mmol/L (137-145) 05/12/20 12:37 Potassium 3.2 mmol/L (3.6-5.0) L 05/12/20 12:37 Chloride 101.0 mmol/L (98-107) 05/12/20 12:37 Carbon Dioxide 25 mmol/L (22-30) 05/12/20 12:37 Anion Gap 15 mmol/L 05/12/20 12:37 BUN 7 mg/dL (7-17) 05/12/20 12:37 Creatinine 0.5 mg/dL (0.6-1.2) L 05/12/20 12:37 Estimated GFR > 60 ml/min 05/12/20 12:37 BUN/Creatinine Ratio 14 % 05/12/20 12:37 Glucose 121 mg/dL (65-100) H 05/12/20 12:37 POC Glucose 179 mg/dL (70-105) H 05/18/20 12:25 Hemoglobin A1c 5.2 % (4-6) 05/12/20 12:37 Calcium 8.8 mg/dL (8.4-10.2) 05/12/20 12:37 Total Bilirubin 0.70 mg/dL (0.1-1.2) 05/12/20 12:37 AST 86 units/L (5-40) H 05/12/20 12:37 ALT 63 units/L (7-56) H 05/12/20 12:37 Alkaline Phosphatase 223 units/L (35-129) H 05/12/20 12:37 Total Protein 7.4 g/dL (6.3-8.2) 05/12/20 12:37 Albumin 4.3 g/dL (3.9-5) 05/12/20 12:37 Albumin/Globulin Ratio 1.4 % 05/12/20 12:37 Triglycerides 114 mg/dL (2-149) 05/12/20 12:37 Cholesterol 225 mg/dL (50-199) H 05/12/20 12:37 LDL Cholesterol Direct 53 mg/dL (50-130) 05/12/20 12:37 HDL Cholesterol 173 mg/dL (40-59) H 05/12/20 12:37 Cholesterol/HDL Ratio 1.30 % 05/12/20 12:37 TSH 2.290 mlU/mL (0.270-4.200) 05/12/20 12:37 Coronavirus (PCR) Negative (Negative) 05/13/20 08:06 Wen/IV: Voiding Method Toilet Active Medications - Current Medications Current Medications: Generic Name Dose Route Start Last Admin Trade Name Freq PRN Reason Stop Dose Admin Acetaminophen 650 mg 05/15/20 19:23 Acetaminophen 325 Mg Tab PO Q6H PRN Pain, Mild (1-3) Acetaminophen/Butalbital/Caffeine 1 tab 05/12/20 22:14 05/18/20 10:45 Butalb/Acetaminophen/Caffeine Tab PO 1 tab BID PRN Administration Headache Amlodipine Besylate 10 mg 05/13/20 10:00 05/18/20 10:31 Amlodipine 10 Mg Tab PO 10 mg DAILY [facility]Y Administration Carbidopa/Levodopa 1 each 05/13/20 08:00 05/18/20 20:53 Carbidopa/Levodopa 25-100 Mg Tab PO 1 each TID [facility]Y Administration Chlordiazepoxide HCl 50 mg 05/13/20 09:21 Chlordiazepoxide 25 Mg Cap PO Q1HR PRN CIWA-Ar 8-15 Chlordiazepoxide HCl 100 mg 05/13/20 09:21 Chlordiazepoxide 25 Mg Cap PO Q1HR PRN CIWA-Ar 16-25 Divalproex Sodium 250 mg 05/17/20 10:00 05/18/20 21:[address] 125 Mg Tab PO 250 mg BID [facility]Y Administration Donepezil HCl 10 mg 05/12/20 22:00 05/18/20 21:06 Donepezil 10 Mg Tab PO 10 mg HS [facility] Administration Ezetimibe 10 mg 05/13/20 10:00 05/18/20 10:41 Ezetimibe 10 Mg Tab PO 10 mg DAILY [facility] Administration Gabapentin 800 mg 05/13/20 08:00 05/18/20 20:53 Gabapentin 400 Mg Cap PO 800 mg TID [facility] Administration Lorazepam 0.5 mg 05/12/20 21:03 05/15/20 21:41 Lorazepam 0.5 Mg Tab PO 0.5 mg DAILY PRN Administration Agitation Topiramate 25 mg 05/12/20 22:00 05/18/20 21:07 Topiramate Tab 25 Mg Tab PO 25 mg BID [facility] Administration Trazodone HCl 100 mg 05/12/20 22:00 05/18/20 21:06 Trazodone 100 Mg Tab PO 100 mg HS [facility] Administration Venlafaxine HCl 150 mg 05/13/20 10:00 05/18/20 10:30 Venlafaxine Xr 75 Mg Cap PO 150 mg DAILY [facility] Administration
--- NOTE | 2020-05-19 07:42 | Progress Note ---
Subjective Date of service: 05/19/20 Principal diagnosis: Schizophrenia Subjective Comment: Psych Nurse:pt spent the evening in activity room interacting appropriately with peers, pt is alert and orientedx4, calm and cooperative, stable mood, bright affect, medication compliant, good appetite, denies si/hi, denies a/v/h, no complaints voiced, no distress noted, safety maintained. Psych Progress Patient describes a good and stable mood, denies being depressed or excessively nervous. Patient eats and sleeps well. Patient denies panic attacks, recurrent nightmares or flashbacks. Patient denies symptoms suggestive of OCD or PTSD. Patient denies hallucinations, paranoia, thought interference and no features suggestive of hypomania or michelle. Patiently completely denies suicidal or homicidal thoughts. Reason for continued inpatient treatment: No recent behavioral disturbances, pt reported to be better and more pleasant, will continue current meds and observe for mood stability. REVIEW OF SYSTEMS Constitutional: Negative for weight loss ENT: Negative for stridor Respiratory: Negative for cough or hemoptysis All other systems reviewed and are negative MENTAL STATUS EXAMINATION General Appearance and Behavior: Age appropriate, good hygiene, wearing appropriate clothes, good eye contact Cooperation: Participating/engaged Psychomotor Behavior: Psychomotor normal Mood: "much better" Affect and affective range: congruent with stated mood Thought Process: logical Thought Content: within reality Speech: Normal rate, volume and rhythm Suicidal Ideation: Denies Homicidal Ideation: Denies Hallucinations: Denies Delusions: None elicited Impulse Control: Impaired Insight and Judgment: Good insight and judgment Memory: Limited Attention: unimpaired Orientation: Alert, oriented Assessment and Plan (1) Schizophrenia (2) Alcohol Use Disorder (3) Major Depressive Disorder (4) Panic Disorder Treatment Plan Discharge pending Patient admitted for inpatient psychiatric evaluation, medication adjustment and close monitoring The patient's behavior, mood, sleep and appetite will be closely monitored. Patient enrolled in individual and group therapeutic sessions and encouraged to attend. Patient provided with a safe and structured environment. Patient's physical health needs will be addressed by the Hospitalist. Hospitalist Consulted Labs including CBC, CMP, Lipid profile and Hemoglobin A1C levels ordered for baseline reference Social Assessment will be completed and the Director Product Development will work with patient and family to ensure a suitable and safe disposition Medication adjustment will be made as clinically indicated continue current meds Usual Wellness Latter-Day/Preservation: - Start Trazodone 50 mg po QHS & 50 mg po QHS PRN between 10 PM & 2 AM for insomnia - Start Melatonin 5 mg po QHS to promote circadian rhythm - Start [place]-3 for brain health, reduce impulsivity, and as adjunctive treatment for mood disorder, continue upon discharge given overall benefits. - Start B1 prophylaxis with 200 mg po for 5 days The patient agreed on the treatment plan, understood the risk, benefit, alternative treatment, potential consequence of no treatment, and gave informed consent. Estimated days: 1 Post hospital care: Outpatient Case staffed with Dr. Felix. Medications and Allergies Allergies Allergy/AdvReac Type Severity Reaction Status Date / Time codeine Allergy Shortness Verified 05/12/20 10:47 of Breath Home Medications Medication Instructions Recorded Confirmed Last Taken Type Buspirone HCl [busPIRone] 15 mg PO BID 05/12/20 05/12/20 Unknown History Butalb/Acetaminophen/Caffeine 1 each PO BID PRN 05/12/20 05/12/20 Unknown History [Pclhwe-Gddmeaoc-Sadh 50-325-40] Carbidopa/Levodopa 25-100 [Sinemet] 1 each PO TID 05/12/20 05/12/20 Unknown History Ezetimibe [Zetia] 10 mg PO DAILY 05/12/20 05/12/20 Unknown History Gabapentin 800 mg PO TID 05/12/20 05/12/20 Unknown History Gabapentin [Neurontin] 800 mg PO TID 05/12/20 05/12/20 Unknown History LORazepam [Lorazepam] 0.5 mg PO DAILY PRN 05/12/20 05/12/20 Unknown History Topiramate [Topamax] 25 mg PO BID 05/12/20 05/12/20 Unknown History Venlafaxine HCl [Venlafaxine HCl 150 mg PO DAILY 05/12/20 05/12/20 Unknown History ER] amLODIPine 10 mg PO DAILY 05/12/20 05/12/20 Unknown History donepeziL [Aricept] 10 mg PO HS 05/12/20 05/12/20 Unknown History traZODone [Desyrel] 100 mg PO HS MDD 300mg 05/12/20 05/12/20 Unknown History Active Meds: Active Medications Acetaminophen (Acetaminophen 325 Mg Tab) 650 mg PO Q6H PRN PRN Reason: Pain, Mild (1-3) Acetaminophen/Butalbital/Caffeine (Butalb/Acetaminophen/Caffeine Tab) 1 tab PO BID PRN PRN Reason: Headache Last Admin: 05/18/20 10:45 Dose: 1 tab Documented by: Amlodipine Besylate (Amlodipine 10 Mg Tab) 10 mg PO DAILY [facility] Last Admin: 05/18/20 10:31 Dose: 10 mg Documented by: Carbidopa/Levodopa (Carbidopa/Levodopa 25-100 Mg Tab) 1 each PO TID [facility] Last Admin: 05/18/20 20:53 Dose: 1 each Documented by: Chlordiazepoxide HCl (Chlordiazepoxide 25 Mg Cap) 50 mg PO Q1HR PRN PRN Reason: CINC-Ar 8-15 Chlordiazepoxide HCl (Chlordiazepoxide 25 Mg Cap) 100 mg PO Q1HR PRN PRN Reason: CINC-Ar 16-25 Divalproex Sodium (Divalproex Dr 125 Mg Tab) 250 mg PO BID [facility] Last Admin: 05/18/20 21:07 Dose: 250 mg Documented by: Donepezil HCl (Donepezil 10 Mg Tab) 10 mg PO HS [facility] Last Admin: 05/18/20 21:06 Dose: 10 mg Documented by: Ezetimibe (Ezetimibe 10 Mg Tab) 10 mg PO DAILY [facility] Last Admin: 05/18/20 10:41 Dose: 10 mg Documented by: Gabapentin (Gabapentin 400 Mg Cap) 800 mg PO TID [facility] Last Admin: 05/18/20 20:53 Dose: 800 mg Documented by: Lorazepam (Lorazepam 0.5 Mg Tab) 0.5 mg PO DAILY PRN PRN Reason: Agitation Last Admin: 05/15/20 21:41 Dose: 0.5 mg Documented by: Topiramate (Topiramate Tab 25 Mg Tab) 25 mg PO BID [facility] Last Admin: 05/18/20 21:07 Dose: 25 mg Documented by: Trazodone HCl (Trazodone 100 Mg Tab) 100 mg PO HS [facility] Last Admin: 05/18/20 21:06 Dose: 100 mg Documented by: Venlafaxine HCl (Venlafaxine Xr 75 Mg Cap) 150 mg PO DAILY [facility] Last Admin: 05/18/20 10:30 Dose: 150 mg Documented by: Results - Results Labs/Vitals: Laboratory Last Values WBC 12.2 K/mm3 (4.5-11.0) H 05/12/20 12:37 RBC 4.07 M/mm3 (3.65-5.03) 05/12/20 12:37 Hgb 12.5 gm/dl (10.1-14.3) 05/12/20 12:37 Hct 37.7 % (30.3-42.9) 05/12/20 12:37 MCV 93 fl (79-97) 05/12/20 12:37 MCH 31 pg (28-32) 05/12/20 12:37 MCHC 33 % (30-34) 05/12/20 12:37 RDW 14.8 % (13.2-15.2) 05/12/20 12:37 Plt Count 316 K/mm3 (140-440) 05/12/20 12:37 Lymph % (Auto) 17.9 % (13.4-35.0) 05/12/20 12:37 [place] % (Auto) 8.4 % (0.0-7.3) H 05/12/20 12:37 Eos % (Auto) 0.0 % (0.0-4.3) 05/12/20 12:37 Baso % (Auto) 0.6 % (0.0-1.8) 05/12/20 12:37 Lymph # (Auto) 2.2 K/mm3 (1.2-5.4) 05/12/20 12:37 [place] # (Auto) 1.0 K/mm3 (0.0-0.8) H 05/12/20 12:37 Eos # (Auto) 0.0 K/mm3 (0.0-0.4) 05/12/20 12:37 Baso # (Auto) 0.1 K/mm3 (0.0-0.1) 05/12/20 12:37 Seg Neutrophils % 73.1 % (40.0-70.0) H 05/12/20 12:37 Seg Neutrophils # 8.9 K/mm3 (1.8-7.7) H 05/12/20 12:37 Sodium 138 mmol/L (137-145) 05/12/20 12:37 Potassium 3.2 mmol/L (3.6-5.0) L 05/12/20 12:37 Chloride 101.0 mmol/L (98-107) 05/12/20 12:37 Carbon Dioxide 25 mmol/L (22-30) 05/12/20 12:37 Anion Gap 15 mmol/L 05/12/20 12:37 BUN 7 mg/dL (7-17) 05/12/20 12:37 Creatinine 0.5 mg/dL (0.6-1.2) L 05/12/20 12:37 Estimated GFR > 60 ml/min 05/12/20 12:37 BUN/Creatinine Ratio 14 % 05/12/20 12:37 Glucose 121 mg/dL (65-100) H 05/12/20 12:37 POC Glucose 179 mg/dL (70-105) H 05/18/20 12:25 Hemoglobin A1c 5.2 % (4-6) 05/12/20 12:37 Calcium 8.8 mg/dL (8.4-10.2) 05/12/20 12:37 Total Bilirubin 0.70 mg/dL (0.1-1.2) 05/12/20 12:37 AST 86 units/L (5-40) H 05/12/20 12:37 ALT 63 units/L (7-56) H 05/12/20 12:37 Alkaline Phosphatase 223 units/L (35-129) H 05/12/20 12:37 Total Protein 7.4 g/dL (6.3-8.2) 05/12/20 12:37 Albumin 4.3 g/dL (3.9-5) 05/12/20 12:37 Albumin/Globulin Ratio 1.4 % 05/12/20 12:37 Triglycerides 114 mg/dL (2-149) 05/12/20 12:37 Cholesterol 225 mg/dL (50-199) H 05/12/20 12:37 LDL Cholesterol Direct 53 mg/dL (50-130) 05/12/20 12:37 HDL Cholesterol 173 mg/dL (40-59) H 05/12/20 12:37 Cholesterol/HDL Ratio 1.30 % 05/12/20 12:37 TSH 2.290 mlU/mL (0.270-4.200) 05/12/20 12:37 Coronavirus (PCR) Negative (Negative) 05/13/20 08:06 Last Vital Signs Temp 98.3 F 05/18/20 22:00 Pulse 75 05/18/20 22:00 Resp 16 12/28/20 22:00 BP 138/81 05/18/20 22:00 Pulse Ox 97 05/18/20 22:00
[2020-05-19] MEDS: CARBIDOPA/LEVODOPA 25-100 MG TAB PO SCH ×2 (08:43→15:03)
[2020-05-19] MEDS: GABAPENTIN 400 MG CAP PO SCH ×2 (08:43→15:03)
[2020-05-19] MEDS: VENLAFAXINE XR 75 MG CAP PO SCH (09:15)
[2020-05-19] MEDS: DIVALPROEX DR 125 MG TAB PO SCH (09:16)
[2020-05-19] MEDS: amLODIPine 10 MG TAB PO SCH (09:16)
[2020-05-19] MEDS: EZETIMIBE 10 MG TAB PO SCH (09:17)
[2020-05-19] MEDS: TOPIRAMATE TAB 25 MG TAB PO SCH (09:17)
[2020-05-19 09:18] VITALS: BP 149/92
[2020-05-19] MEDS: BUTALB/ACETAMINOPHEN/CAFFEINE TAB PO PRN (12:21)
--- NOTE | 2020-05-20 07:33 | Discharge Summary ---
Providers - Providers Date of Admission: 05/12/20 10:50 Date of discharge: 05/19/20 Attending physician: SHARON FRIEDMAN MD 05/12/20 08:58 Consult to Physician [CONS] Routine Comment: Consulting Provider: TERRY PEREZ Physician Instructions: Reason For Exam: manage medical conditions Primary care physician: EMT [facility] Hospitalization Reason for admission: Danger to self Condition: Good Hospital course: The patient was provided inpatient psychiatric treatment with safe and supportive environment, group/individual therapy, psychiatric medication, medication adjustment, adverse effect monitor, medical evaluation, medical treatment, social service assessment, social support meeting, placement ass essment and psycho-education. The patients mood, cognition, behavior, motivation, compliance to treatment and appreciation on family/social support are improved and stabilized. At the time of discharge, the patient had no suicidal ideas, no homicidal ideas, no aggressive thoughts, no endangering behavior and no debilitating adverse effects. The patient agareed on the treatment plan, understood the risk, benefit, alternative treatment, potential consequence of no treatment, and gave informed consent. Disposition: DC-30 STILL A PATIENT Allergies/Adverse Reactions: Allergies codeine Allergy (Verified 05/12/20 10:47) Shortness of Breath Vital Signs: Last Vital Signs Temp 98.3 F 05/18/20 22:00 Pulse 66 05/19/20 09:16 Resp 16 05/18/20 22:00 BP 149/92 05/19/20 09:16 Pulse Ox 97 05/18/20 22:00 Last Lab: Laboratory Last Values WBC 12.2 K/mm3 (4.5-11.0) H 05/12/20 12:37 RBC 4.07 M/mm3 (3.65-5.03) 05/12/20 12:37 Hgb 12.5 gm/dl (10.1-14.3) 05/12/20 12:37 Hct 37.7 % (30.3-42.9) 05/12/20 12:37 MCV 93 fl (79-97) 05/12/20 12:37 MCH 31 pg (28-32) 05/12/20 12:37 MCHC 33 % (30-34) 05/12/20 12:37 RDW 14.8 % (13.2-15.2) 05/12/20 12:37 Plt Count 316 K/mm3 (140-440) 05/12/20 12:37 Lymph % (Auto) 17.9 % (13.4-35.0) 05/12/20 12:37 [place] % (Auto) 8.4 % (0.0-7.3) H 05/12/20 12:37 Eos % (Auto) 0.0 % (0.0-4.3) 05/12/20 12:37 Baso % (Auto) 0.6 % (0.0-1.8) 05/12/20 12:37 Lymph # (Auto) 2.2 K/mm3 (1.2-5.4) 05/12/20 12:37 [place] # (Auto) 1.0 K/mm3 (0.0-0.8) H 05/12/20 12:37 Eos # (Auto) 0.0 K/mm3 (0.0-0.4) 05/12/20 12:37 Baso # (Auto) 0.1 K/mm3 (0.0-0.1) 05/12/20 12:37 Seg Neutrophils % 73.1 % (40.0-70.0) H 05/12/20 12:37 Seg Neutrophils # 8.9 K/mm3 (1.8-7.7) H 05/12/20 12:37 Sodium 138 mmol/L (137-145) 05/12/20 12:37 Potassium 3.2 mmol/L (3.6-5.0) L 05/12/20 12:37 Chloride 101.0 mmol/L (98-107) 05/12/20 12:37 Carbon Dioxide 25 mmol/L (22-30) 05/12/20 12:37 Anion Gap 15 mmol/L 05/12/20 12:37 BUN 7 mg/dL (7-17) 05/12/20 12:37 Creatinine 0.5 mg/dL (0.6-1.2) L 05/12/20 12:37 Estimated GFR > 60 ml/min 05/12/20 12:37 BUN/Creatinine Ratio 14 % 05/12/20 12:37 Glucose 121 mg/dL (65-100) H 05/12/20 12:37 POC Glucose 179 mg/dL (70-105) H 05/18/20 12:25 Hemoglobin A1c 5.2 % (4-6) 05/12/20 12:37 Calcium 8.8 mg/dL (8.4-10.2) 05/12/20 12:37 Total Bilirubin 0.70 mg/dL (0.1-1.2) 05/12/20 12:37 AST 86 units/L (5-40) H 05/12/20 12:37 ALT 63 units/L (7-56) H 05/12/20 12:37 Alkaline Phosphatase 223 units/L (35-129) H 05/12/20 12:37 Total Protein 7.4 g/dL (6.3-8.2) 05/12/20 12:37 Albumin 4.3 g/dL (3.9-5) 05/12/20 12:37 Albumin/Globulin Ratio 1.4 % 05/12/20 12:37 Triglycerides 114 mg/dL (2-149) 05/12/20 12:37 Cholesterol 225 mg/dL (50-199) H 05/12/20 12:37 LDL Cholesterol Direct 53 mg/dL (50-130) 05/12/20 12:37 HDL Cholesterol 173 mg/dL (40-59) H 05/12/20 12:37 Cholesterol/HDL Ratio 1.30 % 05/12/20 12:37 TSH 2.290 mlU/mL (0.270-4.200) 05/12/20 12:37 Coronavirus (PCR) Negative (Negative) 05/13/20 08:06 Core Measure Documentation - Palliative Care Palliative Care/ Comfort Measures: Not Applicable - Core Measures Any of the following diagnoses?: none Exam - Constitutional Vitals: Temp Pulse Resp BP Pulse Ox 98.3 F 66 16 149/92 97 05/18/20 22:00 05/19/20 09:16 05/18/20 22:00 05/19/20 09:16 05/18/20 22:00 - EENT Eyes: Present: PERRL, EOM intact ENT: hearing intact, clear oral mucosa - Neck Neck: Present: supple, normal ROM - Respiratory Respiratory effort: normal - Abdominal Female genitourinary: Present: deferred - Integumentary Integumentary: Present: clear, warm, dry Plan Care Plan Goals: Goals: Maintain good and stable mental health. Plan of Treatment: The patient should be compliant with medications, not to use drugs and not to drink alcohol. The patient understands that if suicidal ideas, homicidal ideas, or any end angering thoughts arise, the patient should immediately seek for emergent assistance including but not limited to crisis hot line and emergency room. Follow up with outpatient Psychiatrist and PCP within 7 - 14 days of discharge. Follow up with: PRIMARY CARE, [Primary Care Provider] - 7 Days Prescriptions: Divalproex Dr [Depakote Dr] 250 mg PO BID #60 tablet traZODone [Desyrel] 100 mg PO HS #30 tab MDD 300mg Venlafaxine HCl [Venlafaxine ER] 150 mg PO DAILY #45 tab
== END 2020-05-19 17:30 | disposition home or self-care (01) | DRG 885 ==
LOC: 3A 06:06 → UNDOADMIN 06:06 → 5A 10:50
PROVIDERS: ADMIT Psychiatry & Neurology Psychiatry; ATTEND Psychiatry & Neurology Psychiatry
DX: F20.9 Schizophrenia, unspecified (principal); F01.51 Vascular dementia, unspecified severity, with behavioral disturbance; Z20.828 Contact with and (suspected) exposure to other viral communicable diseases; F32.9 Major depressive disorder, single episode, unspecified; I67.2 Cerebral atherosclerosis; E66.9 Obesity, unspecified; F41.9 Anxiety disorder, unspecified; F41.0 Panic disorder [episodic paroxysmal anxiety]; Z82.49 Family history of ischemic heart disease and other diseases of the circulatory system; Z79.899 Other long term (current) drug therapy; Z88.5 Allergy status to narcotic agent; Z68.30 Body mass index [BMI] 30.0-30.9, adult; Z72.89 Other problems related to lifestyle
CPT/HCPCS: 36415; 80053; 80061; 82962; 83036; 84443; 85025; G0378; Q0177; U0003